=== PATIENT | male | born 2000 | race African-American/Black ===

== ENCOUNTER 2019-02-09 05:27 | Emergency (ER) | payer SELFPAY ==
[~2019-02-09] VITALS: Ht 175.3 cm; Wt 77.1 kg
--- NOTE | 2019-02-09 06:45 | PHYS DOC ---
Past Medical History Past Medical History: No Pertinent History Past Surgical History: No Surgical History Alcohol Use: None Drug Use: None Adult General Chief Complaint Chief Complaint: ABSCESS HPI HPI Patient is a 18 year old male presented to ER today for evaluation of a tender spot on his right buttock area that been going on for about 10 days. It hurts when he sat on it. Patient denies any fever. Patient denies any abdominal pain. Patient had normal bowel movement without a problem. Patient denies rectal pain. All other ROS is negative unless otherwise noted in HPI Review of Systems Review of Systems See above Current Medications Current Medications Current Medications Medications (Trade) Dose Ordered Sig/Jessica Start Time Stop Time Status Last Admin Dose Admin Acetaminophen (Tylenol) 1,000 mg 1X ONCE 02/09/19 07:15 02/09/19 07:19 DC Cephalexin HCl (Keflex) 500 mg 1X 02/09/19 07:15 Ibuprofen (Motrin) 800 mg 1X ONCE 02/09/19 07:15 02/09/19 07:19 DC Lidocaine HCl (Lidocaine 1% 20ml Vial) 20 ml 1X ONCE 02/09/19 07:00 02/09/19 07:01 DC 02/09/19 06:52 20 ML Trimethoprim/ Sulfamethoxazole (Bactrim Ds) 1 tab 1X ONCE 02/09/19 07:15 02/09/19 07:19 DC Allergies Allergies Allergies Coded Allergies Type Severity Reaction Last Updated Verified No Known Drug Allergies 02/09/19 No Physical Exam Physical Exam See above Constitutional: Well developed, well nourished, no acute distress, non-toxic appearance. [] HENT: Normocephalic, atraumatic, bilateral external ears normal, oropharynx moist, no oral exudates, nose normal. [] Eyes: PERRLA, EOMI, conjunctiva normal, no discharge. [] Neck: Normal range of motion, no tenderness, supple, no stridor. [] Cardiovascular:Heart rate regular rhythm, no murmur [] Lungs & Thorax: Bilateral breath sounds clear to auscultation [] Abdomen: Bowel sounds normal, soft, no tenderness, no masses, no pulsatile masses. [] Skin: There is large indurated abscess about 5 cm by 5 cm on left inner buttock area. Back: No tenderness, no CVA tenderness. [] Extremities: No tenderness, no cyanosis, no clubbing, ROM intact, no edema. [] Neurologic: Alert and oriented X 3, normal motor function, normal sensory function, no focal deficits noted. [] Psychologic: Affect normal, judgement normal, mood normal. [] Current Patient Data Vital Signs Vital Signs Date Time Temp Pulse Resp B/P (MAP) Pulse Ox O2 Delivery O2 Flow Rate FiO2 02/09/19 05:41 98.2 104 18 140/92 (108) 99 Room Air 98.2 EKG EKG [] Radiology/Procedures Radiology/Procedures []Indication: abscess of right buttock Procedure: The patient was positioned appropriately. Local anesthesia was 1% lidocaine, total of 15 ml. An incision was then made over the apex of the lesion by number 11 blade, and large foul purulent material was expressed. The drainage cavity was irrigated . The patients tetanus status updated as needed. The patient tolerated the procedure well. Complications: none. Course & Med Decision Making Course & Med Decision Making Pertinent Labs and Imaging studies reviewed. (See chart for details) [] Dragon Disclaimer Dragon Disclaimer This electronic medical record was generated, in whole or in part, using a voice recognition dictation system. Departure Departure Impression: Primary Impression: Abscess of skin Disposition: HOME, SELF-CARE Condition: IMPROVED Referrals: NO PCP (PCP) follow up with your doctor in 2 days for reevaluation. Patient Instructions: Abscess, Care After Scripts Cephalexin (CEPHALEXIN) 500 Mg Capsule 500 MG PO QID for 10 Days, #40 CAP Prov: THOR REINA DO 02/09/19 Sulfamethoxazole/Trimethoprim (BACTRIM DS TABLET) 1 Each Tablet 1 TAB PO BID, #20 TAB Prov: THOR REINA DO 02/09/19 THOR REINA DO Feb 09, 2019 06:45
[2019-02-09] MEDS ORDERED: LIDOCAINE 1% Multi-Dose 20 ML VIAL. INJ ONE (07:00)
[2019-02-09] MEDS ORDERED: SMZ/TMP 800/160MG TABLET. PO ONE (07:15)
[2019-02-09] MEDS ORDERED: CEPHALEXIN 250 MG CAPSULE. PO SCH (07:15)
[2019-02-09] MEDS ORDERED: IBUPROFEN 400 MG TABLET. PO ONE (07:15)
[2019-02-09] MEDS ORDERED: ACETAMINOPHEN 500 MG TABLET PO ONE (07:15)
[2019-02-09] MEDS ORDERED: CEPH500C PO (07:33)
[2019-02-09] MEDS ORDERED: SULF1TAB24 PO (07:33)
[2019-02-09 07:53] VITALS: BP 160/82
== END 2019-02-09 07:53 | disposition home or self-care (01) ==
LOC: ER 05:27
DX: L02.31 Cutaneous abscess of buttock (principal)
CPT/HCPCS: 10060; 99284